=== PATIENT | male | born 1980 | race Caucasian/White ===

== ENCOUNTER 2025-01-29 12:15 | Emergency (ER) | payer BC, SELFPAY ==
[2025-01-29] VITALS (13 sets, daily range): BP systolic 104–133; BP diastolic 66–86; PULSE 66–85; RESP 12–24; TEMP 36.6; O2SAT 94–99
--- NOTE | 2025-01-29 12:15 | RT.EKG_ITS ---
APPROVED REPORT Exam: Resting ECG Reason for Exam: chest pain Patient Location: E HR:73 bpm ECG Measurements Heart Rate 73 AXIS TN 121 P 53 QRSd 90 QRS 28 QT 393 T 28 QTc 433 Conclusion Sinus rhythm...normal P axis, V-rate 60- 99
--- NOTE | 2025-01-29 12:30 | DI.RAD_ITS ---
Exam(s) XR PORTABLE CHEST AP EXAM: XR PORTABLE CHEST AP CLINICAL HISTORY: chest pain TECHNIQUE: 2D digital imaging was performed. COMPARISON: No exams were available for comparison FINDINGS: LUNGS: Clear. No pleural abnormality seen. HEART: Normal size. AORTA: Normal diameter. BONES: Unremarkable for age. Soft tissues: Unremarkable. IMPRESSION: No acute findings. The preliminary [facility] report was reviewed. DATA REPOSITORY: RADIATION DOSE DELIVERED:
--- NOTE | 2025-01-29 12:31 | W.ED.GENAD ---
Discharge Plan Disposition Patient Disposition: Home Condition: Stable Discharge Details Clinical Impression: Chest pain ED Provider: Roámn Velasco Home Meds and New Rx's Prescriptions: Continued metoprolol succinate 50 mg tablet extended release 24 hr 50 mg PO DAILY citalopram [Celexa] 40 mg tablet 40 mg PO DAILY Discharge Instructions Additional Instructions: Your EKG, blood work and x-ray did not show any concerning findings at this time. I would recommend following up with your primary care provider this week. If you feel more ill or have severe worsening pain or shortness of breath return to the emergency department for reevaluation. Stand Alone Forms: Portal Information [facility] General Mode of arrival: ambulatory. Date/Time Provider Initiated Documentation: 01/29/25 12:18. Limitations to Documentation: no limitations. Information obtained by: patient. History of Present Illness 45 year old M presents to the emergency department with the chief complaint of chest pain, described as moderate, Quality is described as aching, and is localized to the chest. Patient reports no radiation. Patient started experiencing this hour(s) (1) and it has been now resolved. No relieving factors improve symptom(s), No exacerbating factors reported . Patient notes no other symptoms.. Related Data Home Medications ?Medication ?Instructions ?Recorded ?Confirmed citalopram 40 mg tablet (Celexa) 40 mg PO DAILY 01/29/25 01/29/25 metoprolol succinate 50 mg 50 mg PO DAILY 01/29/25 01/29/25 tablet,extended release 24 hr Allergies Allergy/AdvReac Type Severity Reaction Status Date / Time No Known Allergies Allergy Unverified 01/29/25 12:18 General Stated Complaint: Chest Pain JASON: 3 Review of Systems All systems reviewed & are unremarkable except as noted in HPI and below Constitutional Constitutional: Denies chills, Denies fever(s) and Denies weakness Cardiovascular Cardiovascular: Reports chest pain and Denies dyspnea Respiratory Respiratory: Denies cough and Denies dyspnea Gastrointestinal Gastrointestinal: Denies abdominal pain, Denies nausea and Denies vomiting Neurologic Neurologic: Denies weakness Exam Const General: no acute distress Orientation: alert HENWI Head: normal to inspection Ears: external ears normal General nose exam: external nose normal Mouth: moist mucous membranes Eyes General: appearance normal, both eyes and all related structures Neck Neck: normal visual inspection Chest Chest: normal inspection of the chest Resp Effort & Inspection: normal respiratory effort and able to speak in complete sentences Auscultation: clear to auscultation bilaterally Cardio Jugular venous pressure: no JVD Rate: regular rate Skin General skin exam: no rashes or lesions noted Neuro General: patient alert and patient oriented x3 Extrem General: normal to inspection Psych Mental Status: mental status grossly normal Course Vital Signs Vital signs: Vital Signs Temperature 36.6 C 01/29/25 12:14 Pulse 70 01/29/25 12:14 Respiratory Rate 16 01/29/25 12:14 Blood Pressure 133/72 01/29/25 12:14 Pulse Oximetry 99 01/29/25 12:14 Temperature 36.6 C 01/29/25 12:14 Pulse 70 01/29/25 12:14 Respiratory Rate 16 01/29/25 12:14 Blood Pressure 133/72 01/29/25 12:14 Blood Pressure Position Supine 01/29/25 12:14 Pulse Oximetry 99 01/29/25 12:14 Pain Level 0 01/29/25 12:14 Medical Decision Making 45-year-old male who states he has a history of SVT, no other cardiac history, is a smoker, comes in with complaints of chest pressure and feeling his 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 He says that a coworker gave him one of his nitro and a few minutes later his symptoms resolved. Denies any diaphoresis or vomiting. Currently states he is asymptomatic. He has clear lung sounds, no JVD, no leg swelling or calf tenderness. Given his complaints we will check a CBC CMP and troponins. He had no tearing back pain he has equal peripheral pulses so I doubt dissection. He is Wells score low and PERC negative so I doubt PE. Labs including delta troponin unremarkable, x-ray also unremarkable, patient is stable requesting discharge. His heart score is 2 so I feel this is reasonable. He will follow-up with his PCP this week. Symptoms. Differential Diagnosis Differential Diagnosis: nstemi, svt Lab Data Lab results reviewed: Yes I reviewed the patient's lab results. ECG Data Attestation: I personally reviewed and interpreted this ECG (s) as follows: Prior ECG tracings: not available for review Interpretation: sinus rate of 73 no stemi PFSH All Active Problems (Updated 01/29/25 @ 14:20 by Román Velasco MD) Chest pain (Acute) Social History Smoking/Tobacco Use Status: Current every day Smoking risk assessment performed?: Yes Alcohol Intake: current Alcohol Intake frequency: a few times a week Substance use type: does not use Do you feel safe at home: Yes Do you feel safe in your relationship?: Yes
[2025-01-29 12:39] LABS: Abs Immature Grans 0.04 10^3/uL (0.0-0.06); HCT 40.8 % (40.0-50.0); HGB 13.8 g/dL (13.5-17.5); Immature Grans % 0.5 %; MCH 29.2 pg (27.0-33.0); MCHC 33.8 % (32.0-36.0); MCV 86 fL (80-95); MPV 10.8 fL (8.0-11.0); Platelet Count 200 10^3/uL (130-400); RBC 4.73 10^6/uL (4.36-5.78); RDW 12.1 % (11.8-14.1); RDW-SD 38.5 fL; WBC 7.95 10^3/uL (4.4-10.8)
[2025-01-29 13:15] LABS: Magnesium 1.8 mg/dL (1.6-2.6)
[2025-01-29 13:16] LABS: Troponin I 5 ng/L (<54)
[2025-01-29 13:17] LABS: ALT 34 U/L (10-49); AST 25 U/L (<34); Albumin 4.2 g/dL (3.2-5.0); Alkaline Phosphatase 67 U/L (46-116); Anion Gap 5.3 mmol/L (3-11); BUN 15 mg/dL (9-23); Bilirubin, Total 0.7 mg/dL (0.2-1.2); CO2 26.7 mmol/L (20.0-31.0); Calcium 8.7 mg/dL (8.3-10.6); Chloride 109 mmol/L (98-107); Glucose 78 mg/dL (74-106); Potassium 3.9 mmol/L (3.5-5.1); Sodium 141 mmol/L (136-145); Total Protein 7.0 g/dL (5.7-8.2)
--- NOTE | 2025-01-29 14:00 | DI.[facility]_ITS ---
PROCEDURE INFORMATION: Exam: XR Chest Exam date and time: 01/29/2025 1:18 PM Age: 45 years old Clinical indication: Pain; Chest pressure TECHNIQUE: Imaging protocol: Radiologic exam of the chest. Views: 1 view. COMPARISON: No relevant prior studies available. FINDINGS: Lungs: No airspace disease. No consolidation. Pleural spaces: Unremarkable. No pleural effusion. No pneumothorax. Heart/Mediastinum: Unremarkable. No cardiomegaly. Bones/joints: Unremarkable. IMPRESSION: No acute findings. Dictated and Authenticated by: Brooks Branch MD. Orderin Rod France MD
[2025-01-29 14:03] LABS: Troponin I 5 ng/L (<54)
== END 2025-01-29 14:53 | disposition home or self-care (01) ==
LOC: ER 14:28
PROVIDERS: Emergency Provider Emergency Medicine
DX: R07.9 Chest pain, unspecified (principal); R06.02 Shortness of breath
CPT/HCPCS: 99284; 99285; 80053; 93005; 71045; 83735; 84484; 85025; 93010